=== PATIENT | male | born 1950 | race Caucasian/White ===

== ENCOUNTER 2019-03-08 16:18 | Inpatient (IN) | payer MEDICARE, MEDICAID ==
[~2019-03-08] VITALS: Ht 170.2 cm; Wt 50.3 kg
[~2019-03-08 16:18] MED LIST: CARB-113
[2019-03-08 16:56] LABS: BASOPHILS % (AUTO) 0.2 % (0.0-2.0); EOSINOPHILS # (AUTO) 0.1 K/uL (0.0-0.7); EOSINOPHILS % (AUTO) 1.9 % (0.0-7.0); HEMATOCRIT 38.9 % (36.7-47.1); HEMOGLOBIN 13.2 g/dL (12.5-16.3); LYMPHOCYTES # (AUTO) 1.6 K/uL (20.0-40.0); MEAN CORPUSCULAR HEMOGLOBIN 32.2 uug (23.8-33.4); MEAN CORPUSCULAR HGB CONC 34 g/dL (32.5-36.3); MEAN CORPUSCULAR VOLUME 94.6 fL (73.0-96.2); MONOCYTES # (AUTO) 0.3 K/uL (2.0-10.0); MONOCYTES % (AUTO) 6.7 % (0.0-11.0); NEUTROPHILS % (AUTO) 59.2 % (38.5-71.5); PLATELET COUNT (AUTO) 178 K/uL (152-348); RED BLOOD CELL COUNT(AUTO) 4.11 MIL/uL (4.06-5.63); WHITE BLOOD COUNT (AUTO) 5.1 K/uL (3.6-10.2)
[2019-03-08 17:05] LABS: CARBON DIOXIDE 30 mmol/L (21-32); CHLORIDE 108 mmol/L (98-107); CREATININE 0.7 mg/dL (0.6-1.3); GLUCOSE 108 mg/dL (74-106); POTASSIUM 3.8 mmol/L (3.5-5.1); UREA NITROGEN, BLOOD 15 mg/dL (7-18)
[2019-03-08] MEDS ORDERED: MULT-213 PO (17:17)
[2019-03-08] MEDS ORDERED: PIMA34CA PO (17:17)
[2019-03-08] MEDS ORDERED: MIRT15TA PO (17:17)
[2019-03-08] MEDS ORDERED: NA P133E RC (17:17)
[2019-03-08] MEDS ORDERED: BISA10SU61 RC (17:17)
[2019-03-08] MEDS ORDERED: DONE10TA44 PO (17:17)
[2019-03-08] MEDS ORDERED: ACET-2154 PO ×2 (17:17)
[2019-03-08] MEDS ORDERED: MAG355OR18 PO (17:17)
[2019-03-08] MEDS ORDERED: CHOL10005 PO (17:17)
[2019-03-08] MEDS ORDERED: MAGN400O6 PO (17:17)
[2019-03-08] MEDS ORDERED: CARB1TAB15 PO (17:17)
[2019-03-08] MEDS ORDERED: ACET-2605 PO (17:17)
[2019-03-08 17:18] LABS: ALKALINE PHOSPHATASE 66 U/L (50-136); ASPARTATE AMINOTRANSFERASE 10 U/L (15-37); BILIRUBIN,DIRECT 0.2 mg/dL (0.0-0.2); BILIRUBIN,TOTAL 0.7 mg/dL (0.2-1.0); TOTAL PROTEIN, SERUM 6.5 g/dL (6.4-8.2)
[2019-03-08 17:25] LABS: *BILIRUBIN,URIN NEGATIVE (NEGATIVE); *BLOOD, URINE NEGATIVE (NEGATIVE); *CLARITY,URINE CLEAR (CLEAR); *KETONES,URINE 1+ (NEGATIVE); LEUKOCYTE ESTERASE ,URINE NEGATIVE (NEGATIVE); NITRITE, URINE NEGATIVE (NEGATIVE); UGLUCOSE NEGATIVE (NEGATIVE)
[2019-03-08 17:28] LABS: ALANINE AMINOTRANSFERASE < 6 U/L (16-63)
[2019-03-08 17:32] LABS: *COLOR,URINE ORANGE (YELLOW)
[2019-03-08 17:33] LABS: CALCIUM OXALATE CRYSTALS,UR FEW /HPF (NONE SEEN); WBC,URINE 0-3 /HPF (0-3)
[2019-03-08 17:34] LABS: MUCUS,URINE MANY /LPF (0-FEW)
--- NOTE | 2019-03-08 18:28 | NUR ---
Patient voided by urinal. No "In & OUT" urinary catheterization done.
[2019-03-08 19:01] VITALS: BP 156/60
[2019-03-08] MEDS ORDERED: FLEET ENEMA 133 ML BOTTLE RC PRN (19:30)
[2019-03-08] MEDS ORDERED: MAGNESIUM HYDROXIDE 30 ML LIQUID UDC PO PRN (19:30)
[2019-03-08] MEDS ORDERED: ACETAMINOPHEN 325 MG TABLET PO PRN (19:30)
[2019-03-08] MEDS ORDERED: BISACODYL 10 MG SUPP.RECT RC PRN (19:30)
[2019-03-08] MEDS ORDERED: ONDANSETRON 4 MG/2 ML VIAL IV PRN (19:45)
[2019-03-08] MEDS ORDERED: MORPHINE SULFATE 2 MG/1 ML DISP.SYRIN IV PRN (19:45)
[2019-03-08 19:49] VITALS: BP 159/70
--- NOTE | 2019-03-08 20:32 | NUR ---
Patient is very confused, leaving the bed, removing all his clothes, removing monitor. Dr Mendenhall was notified. Ordered Haldol 5mg IM Q8H prn. Will monitor for safety.
[2019-03-08] MEDS ORDERED: Medication Not On Formulary EA (Pimavanserin Tartrate (Nuplazid) 34 MG) PO SCH (21:00)
[2019-03-08] MEDS: DONEPEZIL 10 MG TABLET PO SCH (21:09)
[2019-03-08] MEDS: MIRTAZAPINE 15 MG TABLET PO SCH (21:09)
--- NOTE | 2019-03-08 21:22 | NUR ---
patient is drowsy, took his meds. CT of the head was ordered, fresh foods technician is on the floor trying to convince the patient to go to the CT room. patient refused, asked to be left alone to sleep. Will try in the morning.
--- NOTE | 2019-03-08 22:40 | NUR ---
gave patient a sandwich and juice, ate 50%, calm and cooperative, pleasant demeanor. Fell asleep. Comfort and safety measures are in place.
[2019-03-09 00:27] VITALS: BP 118/65
[2019-03-09 04:41] VITALS: BP 140/70
--- NOTE | 2019-03-09 05:51 | NUR ---
Patient slept most of the night, no episodes of agitation noted. In the AM cooperating with care, although reluctantly. No PRN were given at night.
[2019-03-09 06:32] LABS: BASOPHILS % (AUTO) 0.4 % (0.0-2.0); EOSINOPHILS # (AUTO) 0.2 K/uL (0.0-0.7); HEMATOCRIT 39.1 % (36.7-47.1); HEMOGLOBIN 13.6 g/dL (12.5-16.3); LYMPHOCYTES # (AUTO) 2.5 K/uL (20.0-40.0); MEAN CORPUSCULAR HEMOGLOBIN 32.4 uug (23.8-33.4); MEAN CORPUSCULAR HGB CONC 35 g/dL (32.5-36.3); MEAN CORPUSCULAR VOLUME 93.3 fL (73.0-96.2); MONOCYTES # (AUTO) 0.4 K/uL (2.0-10.0); MONOCYTES % (AUTO) 8.1 % (0.0-11.0); NEUTROPHILS # (AUTO) 2.1 K/uL (1.8-8.9); NEUTROPHILS % (AUTO) 40.5 % (38.5-71.5); PLATELET COUNT (AUTO) 182 K/uL (152-348); WHITE BLOOD COUNT (AUTO) 5.2 K/uL (3.6-10.2)
[2019-03-09 06:42] LABS: THYROID STIMULATING HORMONE 3.742 mIU/mL (0.358-3.740)
[2019-03-09 07:11] LABS: BILIRUBIN,TOTAL 1.2 mg/dL (0.2-1.0); CREATININE 0.8 mg/dL (0.6-1.3); MAGNESIUM 2.3 mg/dL (1.8-2.4); PHOSPHOROUS 3.3 mg/dL (2.5-4.9); POTASSIUM 3.5 mmol/L (3.5-5.1); TOTAL PROTEIN, SERUM 6.2 g/dL (6.4-8.2)
--- NOTE | 2019-03-09 07:15 | NUR ---
PATIENT SLEEPING IN BED. NO DISTRESS NOTED. BED IN LOWEST POSITION, CALL LIGHT WITHIN REACH, SIDE RAILS UP X2. WILL CONTINUE TO MONITOR.
[2019-03-09] MEDS: CARBIDOPA/LEVODOPA 25-100MG TABLET PO SCH ×3 (08:44→16:32)
[2019-03-09] MEDS: CHOLECALCIFEROL 1,000 UNIT TABLET PO SCH (08:44)
[2019-03-09] MEDS: ENTACAPONE 200 MG TABLET PO SCH ×3 (08:44→16:32)
[2019-03-09] MEDS: MULTIVIT, IRON, MIN NO. 8, FA TABLET PO SCH (08:44)
[2019-03-09] MEDS ORDERED: CARBIDOPA PO SCH (09:00)
[2019-03-09] MEDS ORDERED: Medication Not On Formulary EA (Multivitamins W-Minerals (Multivitamin With Minerals) 1 PO SCH (09:00)
[2019-03-09] MEDS ORDERED: LEVODOPA PO SCH (09:00)
[2019-03-09] MEDS ORDERED: Medication Not On Formulary EA (Cholecalciferol (Vitamin D3) (Vitamin D CAPSULE) 1,000 U PO SCH (09:00)
[2019-03-09] MEDS ORDERED: [UNRECOGNIZED DRUG - OTHER] PO SCH (09:00)
[2019-03-09] MEDS ORDERED: ENTACAPONE PO SCH (09:00)
[2019-03-09 10:08] VITALS: BP 102/49
[2019-03-09 11:08] VITALS: BP 101/49
--- NOTE | 2019-03-09 12:00 | NUR ---
DR. ALVAREZ NOTIFIED OF PATIENTS DROP IN BLOOD PRESSURE, PATIENT IS ASYMPTOMATIC. NO NEW ORDER PER DR ALVAREZ.
[2019-03-09] MEDS: CYANOCOBALAMIN 1000 MCG/ML VIAL IM SCH (14:21)
[2019-03-09] MEDS: POTASSIUM CHLORIDE 20 MEQ in IV D5/ 0.9% NACL 1,000 ML IV PRN (14:53)
[2019-03-09 15:09] VITALS: BP 103/49
[2019-03-09] MEDS: HALOPERIDOL LACTATE 5 MG/1 ML VIAL IM PRN (15:45)
--- NOTE | 2019-03-09 18:43 | NUR ---
PATIENT SLEPT INTERMITTENTLY THROUGHOUT DAY. PATIENT REFUSING MEALS, ATE VERY LITTLE. PATIENT BECAME AGITATED, PATIENT NOT REDIRECTABLE, PATIENT TRYING TO GET OUT OF BED AND PULL OUT IV, HALDOL GIVEN PRN. SAFETY MEASURES PROVIDED.
--- NOTE | 2019-03-09 19:30 | NUR ---
Received patient awake in bed, not in any form of distress. Patient mainly [place] speaking, confused. Noted now with IV access on the left forearm with IV fluid infusing well. Bed in low position, locked, side rails up for safety. Noise and lights subdued. Will continue to monitor.
[2019-03-09 19:54] VITALS: BP 106/49
[2019-03-09] MEDS: DONEPEZIL 10 MG TABLET PO SCH (20:54)
[2019-03-09] MEDS: MIRTAZAPINE 15 MG TABLET PO SCH (20:54)
[2019-03-10 04:43] VITALS: BP 109/64
[2019-03-10] MEDS: POTASSIUM CHLORIDE 20 MEQ in IV D5/ 0.9% NACL 1,000 ML IV PRN (06:47)
[2019-03-10] MEDS: HALOPERIDOL LACTATE 5 MG/1 ML VIAL IM PRN (06:49)
--- NOTE | 2019-03-10 07:00 | NUR ---
Patient slept intermittently throughout the night. No complaints were made. No agitation noted. Noted patient for CT of the head this morning.
--- NOTE | 2019-03-10 08:00 | NUR ---
Pt alert to name. Reorient pt to time and place. Pt forgetful and confused. IV on left f/a intact. aspiration precaution implemented. Pt has very poor appetite. Call light is within reach.
[2019-03-10] MEDS: CARBIDOPA/LEVODOPA 25-100MG TABLET PO SCH ×3 (08:28→16:50)
[2019-03-10] MEDS: ENTACAPONE 200 MG TABLET PO SCH ×3 (08:28→16:50)
[2019-03-10] MEDS: CHOLECALCIFEROL 1,000 UNIT TABLET PO SCH (08:28)
[2019-03-10] MEDS: MULTIVIT, IRON, MIN NO. 8, FA TABLET PO SCH (08:29)
[2019-03-10] MEDS: CYANOCOBALAMIN 1000 MCG/ML VIAL IM SCH (08:29)
[2019-03-10 11:00] VITALS: BP 114/53
--- NOTE | 2019-03-10 12:30 | NUR ---
Pt has poor appetite for lunch. Pt only took a few few bites of lunch.
[2019-03-10 15:00] VITALS: BP 102/50
--- NOTE | 2019-03-10 19:22 | NUR ---
Received patient asleep in bed, not in any form of distress. Patient mainly [place] speaking, confused. Noted now with IV access on the left forearm with IV fluid infusing well. Bed in low position, locked, side rails up for safety. Noise and lights subdued. Will continue to monitor.
[2019-03-10 20:00] VITALS: BP 105/46
[2019-03-10] MEDS: MIRTAZAPINE 15 MG TABLET PO SCH (20:38)
[2019-03-10] MEDS: DONEPEZIL 10 MG TABLET PO SCH (20:38)
[2019-03-11] MEDS: POTASSIUM CHLORIDE 20 MEQ in IV D5/ 0.9% NACL 1,000 ML IV PRN (00:29)
[2019-03-11 06:00] VITALS: BP 140/47
--- NOTE | 2019-03-11 06:15 | NUR ---
Patient slept intermittently throughout the night. No complaints were made. No agitation noted. Attended all needs. Ensured safety and comfort.
[2019-03-11] MEDS: ENTACAPONE 200 MG TABLET PO SCH ×3 (08:00→17:46)
[2019-03-11] MEDS: MULTIVIT, IRON, MIN NO. 8, FA TABLET PO SCH (08:00)
[2019-03-11] MEDS: CHOLECALCIFEROL 1,000 UNIT TABLET PO SCH (08:00)
[2019-03-11] MEDS: CYANOCOBALAMIN 1000 MCG/ML VIAL IM SCH (08:00)
[2019-03-11] MEDS: CARBIDOPA/LEVODOPA 25-100MG TABLET PO SCH ×3 (08:00→17:47)
--- NOTE | 2019-03-11 10:00 | NUR ---
Pt more awake and alert today. Aspiration precaution implemented. Pt had good appetite for breakfast. No coughing noted during feed. Call light is within reach.
[2019-03-11 11:42] VITALS: BP 103/49
[2019-03-11 16:00] VITALS: BP 108/52
--- NOTE | 2019-03-11 18:30 | NUR ---
pt is in no acute distress. report given to [facility]. D/c iv catheter intact. medications reconciled.
== END 2019-03-11 19:00 | DRG 56 ==
LOC: ER 16:20 → TELE3 18:26 → MEDSURG3 03-09 15:30
PROVIDERS: ADMIT Internal Medicine; ATTEND Internal Medicine
DX: G31.83 Neurocognitive disorder with Lewy bodies (principal); E43 Unspecified severe protein-calorie malnutrition; D68.59 Other primary thrombophilia; G93.49 Other encephalopathy; Z68.1 Body mass index [BMI] 19.9 or less, adult; F02.80 Dementia in other diseases classified elsewhere, unspecified severity, without behavioral disturbance, psychotic disturbance, mood disturbance, and anxiety; R62.7 Adult failure to thrive; R13.10 Dysphagia, unspecified; F41.9 Anxiety disorder, unspecified; F31.9 Bipolar disorder, unspecified; Z74.09 Other reduced mobility; G90.8 Other disorders of autonomic nervous system; R00.1 Bradycardia, unspecified
CPT/HCPCS: 36415; 70030-TC; 70450; 71045; 83550; 83605; 83735; 84100; 84443; 85025; 85730; 87040; 87086; 93005; A4663; G0378; J1630; J3420; J3480; J7042